=== PATIENT | male | born 1975 | race Caucasian/White ===

== ENCOUNTER 2016-10-09 07:04 | Emergency (ER) | payer BC ==
[2016-10-09 07:15] VITALS: BP 147/78
--- NOTE | 2016-10-09 07:29 | UC ---
Lower Extremity/Ankle HPI - HPI Summary HPI Summary: 5 DAYS AGO HAD SUDDEN ONSET OF RIGHT ANKLE PAIN THAT RESOLVED SPONTANEOUSLY. 2 NIGHT AGO THE PAIN RETURNED - WOKE HIM FROM SLEEP. SAW PCP DR. QUINN YESTERDAY AND WAS CAREFUL OBSERVATION WAS ADVISED. LAST NIGHT PAIN WAS VERY SEVERE. GAIT IS AFFECTED. FEELS LIKE HIS GOUT FLARES BUT IS NOT IN THE USUAL JOINT. DENIES ANY TRAUMA OR INJURY. - History of Current Complaint Chief Complaint: UCLowerExtremity Stated Complaint: RIGHT ANKLE INJURY Time Seen by Provider: 10/09/16 07:21 Hx Obtained From: Patient Onset/Duration: Sudden Onset, Lasting Days, Still Present Severity Initially: Moderate Severity Currently: Moderate Pain Intensity: 7 Pain Scale Used: 0-10 Numeric Aggravating Factor(s): Standing, Ambulation Alleviating Factor(s): Rest Able to Bear Weight: Yes - Allergies/Home Medications Allergies/Adverse Reactions: Allergies Allergy/AdvReac Type Severity Reaction Status Date / Time Penicillins Allergy Unknown Unknown Verified 10/09/16 07:15 Reaction Details Home Medications: Home Medications Fluticasone NASAL * [Flonase *] 1 spray BOTH NARES DAILY PRN 10/09/16 [History Confirmed 10/09/16] Ibuprofen TAB* [Advil TAB*] 200 mg PO QID PRN 10/09/16 [History Confirmed ] PMH/Surg Hx/FS Hx/Imm Hx - Additional Past Medical History Additional PMH: GOUT, SOLITARY RIGHT KIDNEY - Surgical History Surgical History: Yes Surgery Procedure, Year, and Place: LEFT NEPHRECTOMY AGE 1, ABD SURGERY FOR ADHESIONS; right hand age 6 - Family History Known Family History: Negative: Hypertension, Diabetes - Social History Alcohol Use: Occasionally Substance Use Type: None Smoking Status (MU): Never Smoked Tobacco Review of Systems Constitutional: Negative Skin: Negative Respiratory: Negative Cardiovascular: Negative Gastrointestinal: Negative Musculoskeletal: Arthralgia, Decreased ROM, Edema All Other Systems Reviewed And Are Negative: Yes Physical Exam Triage Information Reviewed: Yes Appearance: Well-Appearing, No Pain Distress, Well-Nourished Vital Signs: Initial Vital Signs Temp 98.4 F 10/09/16 07:12 Pulse 63 10/09/16 07:12 Resp 16 10/09/16 07:12 BP 147/78 10/09/16 07:12 Pulse Ox 100 10/09/16 07:12 Vital Signs Reviewed: Yes Eyes: Positive: Conjunctiva Clear ENT: Positive: Hearing grossly normal Neck: Positive: Supple Respiratory: Positive: No respiratory distress, No accessory muscle use Cardiovascular: Positive: Pulses Normal Abdomen Description: Positive: Soft Musculoskeletal: Positive: Edema @ - MILD EDEMA RIGHT ANKLE, Other: - NO TENDERNESS WITH PALPATION OVER ANY BONY PROMINENCES Neurological: Positive: Alert Psychological: Positive: Age Appropriate Behavior Skin: Negative: rashes Diagnostics - Radiology RIGHT ANKLE XRAY Xray Interpretation: No Acute Changes Radiology Interpretation Completed By: Radiologist Lower Extremity Course/Dx - Differential Dx/Diagnosis Provider Diagnoses: GOUT - RIGHT ANKLE Discharge - Discharge Plan Condition: Stable Disposition: HOME Prescriptions: Colchicine [Mitigare] 0.6 mg PO SEE INSTRUCTIONS #3 cap Patient Education Materials: Low Purine Diet (ED), Gout (ED) Referrals: Leanne Shi MD [Primary Care Provider] - If Needed Barbara Meng MD [Medical Doctor] - If Needed Additional Instructions: ANKLE XRAY UNREMARKABLE TODAY. WILL TREAT GOUT WITH COLCHICINE. STAY HYDRATED. IF NOT IMPROVING EXPECTED FOLLOW-UP WITH ORTHO. CONSIDER URIC ACID LEVELS ONCE YOU HAVE BEEN SYMPTOM FREE FOR AT LEAST 2 WEEKS.
--- NOTE | 2016-10-09 07:59 | RAD ---
HISTORY: Right ankle pain COMPARISONS: None VIEWS: 3, Frontal, lateral, and oblique views of the right ankle FINDINGS: BONE DENSITY: Normal. BONES: There is no displaced fracture. JOINTS: There is no arthropathy. ALIGNMENT: There is no dislocation. SOFT TISSUES: Unremarkable. OTHER FINDINGS: None. IMPRESSION: NO ACUTE OSSEOUS INJURY. IF SYMPTOMS PERSIST, RECOMMEND REPEAT IMAGING.
== END 2016-10-09 08:14 | disposition home or self-care (01) ==
LOC: UCEAST 07:04
DX: M10.071 Idiopathic gout, right ankle and foot (principal); Z88.0 Allergy status to penicillin
CPT/HCPCS: 99212; G0463

== ENCOUNTER 2018-12-19 17:13 | Emergency (ER) | payer OTHER ==
[2018-12-19 18:06] VITALS: BP 118/83
--- NOTE | 2018-12-19 18:39 | UC ---
Complaint Male HPI - HPI Summary HPI Summary: 43-year-old male who thinks he may have a urinary tract infection. He's had burning on urination for 1 day. He had UTIs when he was younger but not as an older adult. He is sexually active with one partner who is also sexually active with just him. He states when he first urinates he has a small amount of whitish discharge. He also noticed some redness around the opening of the urethra. He denies any history of sexually transmitted diseases. - History of Current Complaint Chief Complaint: UCGU Stated Complaint: POSS UTI Time Seen by Provider: 12/19/18 18:38 Hx Obtained From: Patient Onset/Duration: Gradual Onset Timing: Intermittent Severity Initially: Mild Severity Currently: Mild Pain Intensity: 1 Location: None Character: Burning Aggravating Factor(s): Voiding Alleviating Factor(s): Nothing Associated Signs And Symptoms: Positive: Dysuria, Penile Discharge - Just a small amount of whitish discharge when he first starts urinating. - Allergies/Home Medications Allergies/Adverse Reactions: Allergies Allergy/AdvReac Type Severity Reaction Status Date / Time Penicillins Allergy Unknown Verified 12/19/18 18:06 Reaction Details PMH/Surg Hx/FS Hx/Imm Hx Previously Healthy: Yes - Surgical History Surgical History: Yes Surgery Procedure, Year, and Place: LEFT NEPHRECTOMY AGE 1, ABD SURGERY FOR ADHESIONS 26; right hand age 6 - Family History Known Family History: Negative: Hypertension, Diabetes - Social History Alcohol Use: Rare Substance Use Type: None Smoking Status (MU): Never Smoked Tobacco Review of Systems All Other Systems Reviewed And Are Negative: Yes Skin: Positive: Other - Patient has some redness around the opening of his urethra. Genitourinary: Positive: Dysuria, Vaginal/Penile Burning, Vaginal/Penile Discharge Is Patient Immunocompromised?: No Physical Exam Triage Information Reviewed: Yes Appearance: Well-Appearing, No Pain Distress, Well-Nourished Vital Signs: Initial Vital Signs Temp 99.6 F 12/19/18 18:01 Pulse 54 12/19/18 18:01 Resp 12 12/19/18 18:01 BP 118/83 12/19/18 18:01 Pulse Ox 100 12/19/18 18:01 Vital Signs Reviewed: Yes Neck: Positive: Supple, Nontender, No Lymphadenopathy Respiratory: Positive: Lungs clear, Normal breath sounds, No respiratory distress, No accessory muscle use Cardiovascular: Positive: RRR, No Murmur, Pulses Normal, Brisk Capillary Refill Abdomen Description: Positive: Nontender, No Organomegaly, Soft. Negative: CVA Tenderness (R), CVA Tenderness (L), Distended, Guarding, Hepatomegaly, Splenomegaly Bowel Sounds: Positive: Present Male Genital Exam: Positive: Normal Genitalia. Negative: Epididymal Tenderness , Inguinal Tenderness, Lesions, Scrotum Tenderness (R), Scrotum Tenderness (L), Testicular Tenderness (R), Testicular Tenderness (L), Urethral Discharge - The urethra itself has some redness around the opening and patient states on palpation he has tenderness about the distal third of the penis. No discharge could be expressed. No other erythema, swelling is noted. Musculoskeletal Exam: Normal Neurological Exam: Normal Psychological Exam: Normal Skin: Positive: Other - See above notes. Complaint Male Course/Dx - Course Course Of Treatment: After discussion with Dr. Hull, a urine for GC and chlamydia is sent and urine culture will be done even though the urinalysis is negative. I'm going to treat the patient for urethritis with doxycycline 100 mg by mouth twice a day 7 days. He is to call in 2 days from now for the reports and no sexual intercourse until he gets those reports. Patient is agreeable to this plan of action. - Differential Dx/Diagnosis Provider Diagnosis: Urethritis Discharge - Sign-Out/Discharge Documenting (check all that apply): Patient Departure All imaging exams completed and their final reports reviewed: No Studies - Discharge Plan Condition: Fair Disposition: HOME Prescriptions: DOXYcycline CAP(*) [DOXYcycline 100MG CAP(*)] 100 mg PO BID 7 Days #14 cap Patient Education Materials: Nonspecific Urethritis in Men (ED) Referrals: Zoya Wang MD [Primary Care Provider] - Additional Instructions: Increase fluids. No dairy products, antacids, multivitamins 2 hours before you take the doxycycline and 2 hours after however take the doxycycline with food. No intercourse until results of the tests come back. Call here for results on Wednesday afternoon. If you develop fever, chills, vomiting and unable keep medicine down and go to the emergency room for further treatment. - Billing Disposition and Condition Condition: FAIR Disposition: Home - Attestation Statements Provider Attestation: Pt not seen by me. I was available for consult. INGE
[2018-12-21 13:33] LABS: Chlamydia trachomatis NAA Negative (Negative); Neisseria gonorrhoeae (GC) NAA Negative (Negative)
--- NOTE | 2018-12-21 16:42 | UC ---
- Progress Note Progress Note: GC/ch neg no change ljj 12/21/18 Course/Dx - Diagnoses Provider Diagnoses: Urethritis Discharge ED - Sign-Out/Discharge Documenting (check all that apply): Post-Discharge Follow Up All imaging exams completed and their final reports reviewed: No Studies - Discharge Plan Condition: Fair Disposition: HOME Prescriptions: DOXYcycline CAP(*) [DOXYcycline 100MG CAP(*)] 100 mg PO BID 7 Days #14 cap Patient Education Materials: Nonspecific Urethritis in Men (ED) Referrals: Zoya Wang MD [Primary Care Provider] - Additional Instructions: Increase fluids. No dairy products, antacids, multivitamins 2 hours before you take the doxycycline and 2 hours after however take the doxycycline with food. No intercourse until results of the tests come back. Call here for results on Wednesday afternoon. If you develop fever, chills, vomiting and unable keep medicine down and go to the emergency room for further treatment. - Billing Disposition and Condition Condition: FAIR Disposition: Home
== END 2018-12-19 19:20 | disposition home or self-care (01) ==
LOC: UCEAST 17:13
DX: N34.2 Other urethritis (principal); Z88.0 Allergy status to penicillin; Z90.5 Acquired absence of kidney
CPT/HCPCS: 81003; 87077; 87086; 87491; 87591; 99212; G0463

== ENCOUNTER 2024-02-07 13:15 | Observation (INO) ==
[2024-02-07 13:44] LABS: ABS Basophils 0.1 10^3/uL (0.0-0.1); ABS Eosinophils 0.1 10^3/uL (0.0-0.5); ABS Lymphocytes 1.1 10^3/uL (1.0-4.8); ABS Monocytes 0.6 10^3/uL (0.0-1.1); ABS Neutrophils 5.2 10^3/uL (1.5-7.6); ABS Nucleated RBC 0.01 10^3/ul; Eosinophil % 1.1 %; Hematocrit 41.7 % (38-53); Hemoglobin 14.2 g/dL (13.2-16.3); Lymphocyte % 15.5 %; Mean Corpuscular Hemoglobin 29.8 pg (27-33); Mean Corpuscular Hgb Conc 33.9 g/dL (31-36); Mean Corpuscular Volume 87.9 fL (80-97); Mean Platelet Volume 7.8 fL (7.5-11.2); Nucleated Red Blood Cells % 0.1 %/100WBC (0.0-0.8); Platelet Count 240 10^3/uL (150-450); Red Blood Count 4.74 10^6/uL (4.06-5.63); Red Cell Distribution Width 13.4 % (12-17)
[2024-02-07 14:25] LABS: Albumin 4.3 g/dL (3.2-5.2); Albumin/Globulin Ratio 2.3 (1-3); Calcium 9.3 mg/dL (8.6-10.3); Creatinine, Serum 1.82 mg/dL (0.67-1.17); Globulin 1.9 g/dL (2-4); Magnesium 1.8 mg/dL (1.9-2.7); Potassium 5.5 mmol/L (3.5-5.0); Total Bilirubin 0.5 mg/dL (0.2-1.0); Total Protein 6.2 g/dL (6.4-8.9); eGFR CKD-EPI 44.7 (>60)
[2024-02-07 14:34] LABS: TSH Ultra Thyroid Stim Horm 0.74 mcIU/mL (0.34-5.60)
[2024-02-07 15:07] LABS: High Sensitivity Troponin 1 Hr 14 pg/mL (<20)
[2024-02-07] MEDS: Magnesium Sulfate 2 gm BAG 2 GM/50 ML BAG IVPB ONE (15:09)
[2024-02-07] MEDS ORDERED: Sulfur Hexaflouride MICROSPHR 25 MG VIAL IV PRN (16:03)
[2024-02-07] MEDS: DOXYcycline 100 MG in NS 0.9% 250 ml 250 ML IVPB SCH (17:07)
[2024-02-07] MEDS: Sodium Polystyrene ORAL.SUSP 15 GM/60 ML BTL PO ONE (18:59)
[2024-02-07] MEDS: cefTRIAXone 2 gm/50 mL D5W 2 GM/50 ML BAG IV SCH (19:01)
[2024-02-07] MEDS: Enoxaparin 40 MG/0.4 ML SYR SUBCUT SCH (20:59)
[2024-02-08 06:13] LABS: Hematocrit 43.3 % (38-53); Hemoglobin 14.8 g/dL (13.2-16.3); Mean Corpuscular Hemoglobin 30.1 pg (27-33); Mean Corpuscular Hgb Conc 34.1 g/dL (31-36); Mean Corpuscular Volume 88.2 fL (80-97); Mean Platelet Volume 7.9 fL (7.5-11.2); Platelet Count 223 10^3/uL (150-450); Red Blood Count 4.91 10^6/uL (4.06-5.63); Red Cell Distribution Width 13.5 % (12-17); White Blood Count 6.6 10^3/uL (3.6-10.2)
[2024-02-08 06:42] LABS: Calcium 9.1 mg/dL (8.6-10.3); Creatinine, Serum 1.72 mg/dL (0.67-1.17); Potassium 5.3 mmol/L (3.5-5.0); eGFR CKD-EPI 47.8 (>60)
[2024-02-08] MEDS: SODIUM ZIRCONIUM CYCLOSILICATE 10 GM PACKET PO SCH (10:09)
[2024-02-08] MEDS: cefTRIAXone 2 gm/50 mL D5W 2 GM/50 ML BAG IV SCH (19:28)
[2024-02-09 07:19] LABS: Creatinine, Serum 1.6 mg/dL (0.67-1.17); Potassium 4.6 mmol/L (3.5-5.0); eGFR CKD-EPI 52.2 (>60)
[2024-02-09 14:22] VITALS: BP 134/90
[2024-02-10 22:42] LABS: Anaplasma phagocytophilum Negative (Negative); B. miyamotoi PCR, B Negative (Negative); Babesia divergens/MO-1 Negative (Negative); Babesia ducani Negative (Negative); Ehrlichia chaffeensis Negative (Negative); Ehrlichia ewingii/canis Negative (Negative); Ehrlichia muris eauclairensis Negative (Negative)
[2024-02-11 16:32] LABS: IgG Immunoblot Negative (Negative); IgM Immunoblot Positive (Negative)
== END 2024-02-09 16:15 | disposition home or self-care (01) ==
LOC: EDHOLD 13:15 → ED 13:15 → SUATTDRO 15:23 → MEDTELE 02-08 09:36
PROVIDERS: ADMIT Family Medicine; ATTEND Internal Medicine